=== PATIENT | male | born 2000 | race African-American/Black ===

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

== ENCOUNTER 2020-03-29 03:17 | Emergency (ER) | payer SELFPAY ==
[2020-03-29 03:17] VITALS: RESP 0; TEMP 35.9; O2SAT 0; BMI 37.7
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
--- NOTE | 2020-03-29 05:06 | ED.RN ---
0329 200ml of NS infused via EMS prior to arrival to ED.
== END 2020-03-29 06:00 ==
PROVIDERS: Emergency Provider Emergency Medicine
DX: T71.162A Asphyxiation due to hanging, intentional self-harm, initial encounter (principal)
CPT/HCPCS: 92950; 99282; J7030